=== PATIENT | female | born 1970 ===

== ENCOUNTER 2019-05-01 09:11 | Outpatient (CLI) | payer OTHER ==
[~2019-05-01 09:11] MED LIST: AMOX1TAB12 PO; CIPRO500 MG PO; DICLOFENAC POTA50 MG PO; GILTUSS TR TAB1 EACH PO; IROPLEX PO
== END 2019-05-01 15:00 | disposition home or self-care (01) ==
LOC: LAB 09:11
DX: J11.1 Influenza due to unidentified influenza virus with other respiratory manifestations (principal); A49.8 Other bacterial infections of unspecified site; R50.9 Fever, unspecified